=== PATIENT | female | born 1990 | race African-American/Black ===

== ENCOUNTER 2022-11-25 05:21 | Emergency (ER) | payer OTHER ==
[2022-11-25] MEDS ORDERED: Ondansetron PF 4 MG/2 ML Vial ONE (05:40)
[2022-11-25] MEDS ORDERED: LORazepam 2 MG/ML SYR.(CARPUJECT) ONE (05:41)
[2022-11-25] MEDS ORDERED: levETIRAcetam 500 MG/5 ML VIAL ONE (05:41)
[2022-11-25 06:01] LABS: Hematocrit 30.9 % (36.0-47.0); Hemoglobin 9.9 g/dL (12.0-16.0); Mean Corpuscular Hemoglobin 21.9 pg (27.0-31.0); Mean Corpuscular Volume 68.2 fl (78.0-98.0); Platelet Count 167 10x3/uL (130-400); RBC Distribution Width 16.7 % (11.5-14.5); Red Blood Cell (RBC) Count 4.53 mill/uL (4.20-5.40); White Blood Cell (WBC) Count 9.2 10x3/uL (4.8-10.8)
[2022-11-25 06:04] LABS: BHCG - Serum Negative (NEGATIVE); Delete Auto Diff?? YES; Manual Diff?? YES; Pregs Control Background? CLEAR/WHITE (CLR/WHITE); Pregs Control Bar Appear? YES (CONTROL BAR)
[2022-11-25 06:26] LABS: ALT (SGPT) 12 U/L (8-55); AST (SGOT) 20 U/L (5-34); Albumin 4.4 g/dL (3.5-5.0); Alkaline Phosphatase 54 U/L (40-110); Anion Gap 11 mmol/L (10-20); BUN (Urea Nitrogen) 14 mg/dL (7.0-18.7); Calc. Creatinine Clearance 0 mL/min (70-130); Calcium 9.4 mg/dL (7.8-10.44); Carbon Dioxide 24 mmol/L (22-29); Chloride 104 mmol/L (98-107); Estimated GFR 118; Globulin 2.8 g/dL (2.4-3.5); Glucose 90 mg/dL (70-105); Lipase 18 U/L (8-78); Potassium 3.7 mmol/L (3.5-5.1); Protein, Total 7.2 g/dL (6.0-8.3); Sodium 135 mmol/L (136-145)
[2022-11-25 06:29] LABS: Anisocytosis SLIGHT = 6-15 cells HPF (0-5); CellaVision Operator ID lab.abc; Hypochromia MODERATE=16-30 cells HPF (0-5); Lymphocytes 15 % (21-51); Microcytosis SLIGHT = 6-15 cells HPF (0-5); Monocytes 3 % (0-10); Neutrophil 82 % (42-75); Platelet Adequacy Comment Platelets Normal; Polychromasia SLIGHT = 2-3 cells HPF (0-2); Target Cells SLIGHT = 2-5 cells HPF (0-1); Tear Drops SLIGHT = 2-5 cells HPF (0-1); Total Cell Count 100; Troponin I Less than 0.010 ng/mL (< 0.028)
== END 2022-11-25 07:22 ==
LOC: ERS 05:21 → EEVIPCON 05:21 → ERS 07:22
DX: R56.9 Unspecified convulsions (principal)
CPT/HCPCS: 36415; 71045; 80053; 83690; 84146; 84484; 84703; 85025; 93005; 96361; 96365; 96375; J1953; J2060; J2405